=== PATIENT | female | born 1990 | race African-American/Black ===

== ENCOUNTER 2020-05-17 08:15 | Inpatient (IN) | payer OTHER ==
[2020-05-17] MEDS ORDERED: CITRIC ACID/SODIUM CITRATE 30 ML UNIT-DOSE CUP PO ONE (08:54)
[2020-05-17] MEDS: ELECTROLYTE-148 SOLN 1,000 ML IV SCH (09:00)
[2020-05-17] MEDS ORDERED: OXYTOCIN 20 UNITS in 0.9% NS 40 UNIT/2,000 ML INFUS.BAG IV ONE (09:32)
[2020-05-17] MEDS ORDERED: morphine SULFATE/PF 0.5 MG/ML (2cc Syringe - QUVA) ONE (09:36)
[2020-05-17] MEDS ORDERED: ePHEDrine SULFATE 50 MG/1 ML AMPULE ONE (09:36)
[2020-05-17] MEDS ORDERED: ceFAZolin SODIUM 1 GM VIAL ONE (09:36)
[2020-05-17] MEDS ORDERED: OXYTOCIN 10 UNITS/ML VIAL ONE (09:36)
[2020-05-17] MEDS ORDERED: PHENYLEPHRINE HCL 10 MG/1 ML SINGLE DOSE VIAL ONE (09:36)
[2020-05-17] MEDS ORDERED: SODIUM CHLORIDE 0.9% P/F 10 ML VIAL IJ ONE (09:38)
[2020-05-17 09:43] VITALS: BMI 38.2
[2020-05-17] MEDS ORDERED: ONDANSETRON 4 MG/2 ML VIAL ONE (10:46)
[2020-05-17] MEDS ORDERED: KETOROLAC TROMETHAMINE 30 MG/1 ML VIAL ONE (10:46)
[2020-05-17] MEDS ORDERED: diphenhydrAMINE HCL 25 MG CAPSULE (FP) PO PRN (11:46)
[2020-05-17] MEDS ORDERED: WITCH HAZEL 50% (TUCKS) 40 PAD/JAR PAD TP PRN (11:46)
[2020-05-17] MEDS ORDERED: METHYLERGONOVINE MALEATE 0.2 MG/1 ML AMP IM PRN (11:46)
[2020-05-17] MEDS ORDERED: IBUPROFEN 800 MG/8 ML IJ IVPB PRN (11:46)
[2020-05-17] MEDS ORDERED: BENZOCAINE 20% 57 GM BOTTLE TP PRN (11:46)
[2020-05-17] MEDS ORDERED: oxyCODONE HCL 5 MG TABLET PO PRN (11:46)
[2020-05-17] MEDS ORDERED: BENZOCAINE 28 GM HEMORRHOIDAL OINTMENT RC PRN (11:46)
[2020-05-17] MEDS ORDERED: ACETAMINOPHEN 325 MG TABLET (FP) PO PRN (11:47)
[2020-05-17] MEDS ORDERED: ONDANSETRON 4 MG/2 ML VIAL IVPUSH PRN (11:54)
[2020-05-17] MEDS ORDERED: IBUPROFEN 600 MG TABLET (FP) PO PRN (11:54)
[2020-05-17] MEDS ORDERED: ACETAMINOPHEN 1000 MG/100 ML VIAL (NON FORMULARY) IVPB ONE (11:56)
[2020-05-17] MEDS ORDERED: OXYTOCIN 20 UNITS in 0.9% NS 20 UNIT/1,000 ML INFUS.BAG IV SCH (12:00)
[2020-05-17 12:22] LABS: CORD BASE EXCESS -1.7 mmol/L (0-2); CORD HCO3 25.9 mmHg (20-29); CORD PCO2 54.8 mmHg (30-78); CORD pH 7.293 (7.14-7.44)
[2020-05-17 12:25] LABS: CORD HCO3 27.5 mmHg (20-29); CORD PCO2 68.7 mmHg (30-78)
[2020-05-17] MEDS ORDERED: OXYTOCIN 20 UNITS in 0.9% NS 20 UNIT/1,000 ML INFUS.BAG IV ONE (13:07)
[2020-05-17] MEDS ORDERED: RAPID SEQUENCE INTUBATION KIT NR ONE (13:49)
[2020-05-17] MEDS: CEFAZOLIN 1 GM/D5W 1 GM/50 ML BAG IVPB SCH (17:54)
[2020-05-18] MEDS: CEFAZOLIN 1 GM/D5W 1 GM/50 ML BAG IVPB SCH (01:31)
[2020-05-18 08:26] LABS: BASO % 0.1 % (0-2.0); EOS % 0.2 % (0-4.5); HEMATOCRIT 32.7 % (32.4-45.2); HEMOGLOBIN 10.8 GM/dL (10.7-15.3); MCH 27.4 pg (25.7-33.7); MCHC 33.1 g/dl (32.0-36.0); MONO % 8.9 % (3.8-10.2); NEUT % 81.8 % (42.8-82.8); PLATELET COUNT 217 K/MM3 (134-434); RBC 3.94 M/mm3 (3.60-5.2); RDW 15.9 % (11.6-15.6); WHITE BLOOD COUNT 11.6 K/mm3 (4.0-10.0)
[2020-05-18] MEDS: ENOXAPARIN NA (PORCINE) 40 MG/0.4 ML DISP.SYRIN SQ SCH (10:56)
[2020-05-18] MEDS: IBUPROFEN 600 MG TABLET (FP) PO PRN (10:57)
[2020-05-18] MEDS: ACETAMINOPHEN 325 MG TABLET (FP) PO PRN ×2 (10:57→20:39)
[2020-05-18] MEDS ORDERED: BISACODYL 10 MG SUPP.RECT PR PRN (11:46)
[2020-05-18] MEDS: oxyCODONE HCL 5 MG TABLET PO PRN (20:39)
[2020-05-18] MEDS: DEXTROSE 5%-LACTATED RINGERS 1,000 ML IV SCH (22:12)
[2020-05-18] MEDS: ELECTROLYTE-148 SOLN 1,000 ML IV SCH (22:13)
[2020-05-19] MEDS: ACETAMINOPHEN 325 MG TABLET (FP) PO PRN ×2 (01:27→08:03)
[2020-05-19] MEDS: oxyCODONE HCL 5 MG TABLET PO PRN (01:28)
[2020-05-19] MEDS: SIMETHICONE 80 MG TAB.CHEW (FP) PO PRN ×2 (01:29→08:03)
[2020-05-19] MEDS: IBUPROFEN 600 MG TABLET (FP) PO PRN (08:03)
[2020-05-19 08:37] VITALS: BP 125/81; PULSE 102; TEMP 98.5
[2020-05-19] MEDS: ENOXAPARIN NA (PORCINE) 40 MG/0.4 ML DISP.SYRIN SQ SCH (10:13)
[2020-05-19] MEDS ORDERED: SENNOSIDES/DOCUSATE COMBO (SENNA PLUS) TABLET (UD) PO PRN (22:00)
== END 2020-05-19 14:45 | disposition home or self-care (01) | DRG 540 ==
LOC: JLDR 08:15 → J3W 13:30
PROVIDERS: ADMIT Obstetrics & Gynecology; ATTEND Obstetrics & Gynecology
PROC: 10D00Z1 Extraction of Products of Conception, Low, Open Approach (ICD-10-PCS; principal; 2020-05-17)
PROC: 0DNW0ZZ Release Peritoneum, Open Approach (ICD-10-PCS; 2020-05-17)
DX: O34.219 Maternal care for unspecified type scar from previous cesarean delivery (principal); O99.214 Obesity complicating childbirth; O69.81X0 Labor and delivery complicated by cord around neck, without compression, not applicable or unspecified; K66.0 Peritoneal adhesions (postprocedural) (postinfection); Z3A.39 39 weeks gestation of pregnancy; Z37.0 Single live birth
CPT/HCPCS: 36415; 36600; 82803; 85025